=== PATIENT | male | born 1985 | race Caucasian/White ===

== ENCOUNTER 2023-08-03 18:17 | Emergency (ER) | payer MEDICAID ==
[~2023-08-03] VITALS: Ht 182.9 cm; Wt 72.7 kg
[2023-08-03] MEDS ORDERED: ringers solution, lacted 1,000 ML IV ONE (21:00)
[2023-08-03] MEDS ORDERED: morphine 4 MG/ML inj SYRINge IV ONE (21:40)
--- NOTE | 2023-08-03 21:49 | NUR ---
PER DR GARCIA REQUEST. PLACED NS SOAKED GAUZE ON PT PROLAPSED STOMA AND ICE PACKS.
[2023-08-03 21:50] LABS: BASOPHILS # (AUTO) 0.1 X10'3 (0-0.2); BASOPHILS % (AUTO) 0.6 % (0-1); EOSINOPHILS # (AUTO) 0.1 X10'3 (0-0.9); LYMPHOCYTES # (AUTO) 1.9 X10'3 (1.1-4.8); NEUTROPHILS # (AUTO) 10.8 X10'3 (1.8-7.7)
[2023-08-03 21:51] LABS: HEMATOCRIT 34.5 % (42.0-52.0); HEMOGLOBIN 10.7 g/dl (14.0-17.9); RED BLOOD COUNT 5.39 X10'6 (4.70-6.10)
[2023-08-03 21:52] LABS: EOSINOPHILS % (AUTO) 0.5 % (0-6); LYMPHOCYTES % (AUTO) 13.7 % (21-51); MEAN CORPUSCULAR HEMOGLOBIN 19.8 PG (27.0-31.0); MEAN CORPUSCULAR HGB CONC 30.9 g/dL (33.0-36.5); MEAN CORPUSCULAR VOLUME 64.1 FL (78-98); MEAN PLATELET VOLUME 7.4 FL (7.4-10.4); MONOCYTES # (AUTO) 1.1 X10'3 (0-0.9); MONOCYTES % (AUTO) 8.1 % (2-12); NEUTROPHILS % (AUTO) 77.1 % (42-75); PLATELET COUNT 624 X10'3 (140-440); RED CELL DISTRIBUTION WIDTH 19.3 % (11.5-14.5)
[2023-08-03 21:56] LABS: APTT 34 SECONDS (22-32); INR 1.1 INR; PROTHROMBIN TIME 11.5 SECONDS (9.0-12.0)
[2023-08-03 22:00] LABS: ANISOCYTOSIS 2+; MICROCYTOSIS 2+; PLATELET ESTIMATE INCREASED
[2023-08-03 22:05] LABS: POIKILOCYTOSIS 1+
[2023-08-03 22:06] LABS: HYPOCHROMASIA 1+
[2023-08-03 22:07] LABS: ELLIPTOCYTES 1+
[2023-08-03 22:08] LABS: SCHISTOCYTES 1+
--- NOTE | 2023-08-03 22:08 | NUR ---
PT PROLAPSE REDUCED IN SIZE A VERY SMALL AMOUNT. PLACED CANE SUGAR ON PROLAPSE AND PLACED NS SOAKED GAUZE WITH ICE PACKS BACK ON. DR GARCIA NOTIFIED.
[2023-08-03 22:18] LABS: ALANINE AMINOTRANSFERASE 13 U/L (12-78); ALBUMIN 2.1 G/DL (3.4-5.0); ALBUMIN/GLOBULIN RATIO 0.4 (1.1-1.5); ALKALINE PHOSPHATASE 111 IU/L (46-116); ANION GAP 13 (8-16); ASPARTATE AMINO TRANSFERASE 13 U/L (10-37); BILIRUBIN,TOTAL 0.3 MG/DL (0.1-1.0); BLOOD UREA NITROGEN 7 MG/DL (7-18); CALCIUM 9.2 MG/DL (8.5-10.1); CHLORIDE 97 MMOL/L (99-107); GLUCOSE 107 MG/DL (70-104); POTASSIUM 3.4 MMOL/L (3.5-5.1); SODIUM 133 MMOL/L (135-145); TOTAL CARBON DIOXIDE 23.5 MMOL/L (24-32); TOTAL PROTEIN 7.8 G/DL (6.4-8.2); eCRCL 144 ML/MIN; eGFR > 90 ML/MIN
[2023-08-03 22:19] LABS: PRO BRAIN NATRIURETIC PEPTIDE 208 PG/ML (0-125)
--- NOTE | 2023-08-03 22:59 | NUR ---
marah lemus attempt to reduce prolapse. attempt unsuccessful. placed ns soaked gauze over site per dr lemus request.
[2023-08-03 23:51] LABS: BILIRUBIN,URINE SMALL (Neg); CLARITY,URINE TURBID (Clear); COLOR,URINE YELLOW (Yellow); GLUCOSE, URINE NEGATIVE (Neg); KETONES,URINE 40 mg/dl (Neg); LEUKOCYTE ESTERASE ,URINE NEGATIVE (Neg); NITRITES, URINE POSITIVE (Neg); OCCULT BLOOD,URINE TRACE-INTACT (Neg); PROTEIN,URINE 30 mg/dl (Neg); UROBILINOGEN,URINE 0.2 E.U/dL (0.2-1.0)
[2023-08-03 23:59] LABS: UA COLLECTION TYPE SUPRAPUBIC CATH
[2023-08-04] LABS: MUCUS STRANDS MANY /LPF (Neg); SQUAMOUS EPITHELIAL CELL,UR MANY /LPF (FEW)
[2023-08-04 00:02] LABS: WBC,URINE 50-100 /HPF (0-4)
[2023-08-04 00:03] LABS: BACTERIA,URINE 3+ /HPF (Neg); RBC,URINE 0-2 /HPF (0-2)
[2023-08-04] MEDS ORDERED: piperacillin/tazo 4.5gm/100ml 100 ML IV ONE (01:57)
--- NOTE | 2023-08-04 03:39 | NUR ---
I have reviewed and agree with all assessments performed and documented by (JENNIFER RECINOS)
[2023-08-04] MEDS ORDERED: morphine 4 MG/ML inj SYRINge IV ONE ×2 (06:55→07:35)
--- NOTE | 2023-08-04 07:12 | NUR ---
pt requested to have ostomy bag put on. notified charge liz rn, charge agreed. cleaned around site with ns and applied new ostomy bag.
[2023-08-04 07:17] VITALS: TEMP 97.4
[2023-08-04] MEDS ORDERED: fentaNYL/PF 50MCG/1 ML 2ML syringe IV ONE (07:40)
--- NOTE | 2023-08-04 07:43 | NUR ---
DR HOLLIDAY AT BEDSIDE, REDUCED OSTOMY.
[2023-08-04] MEDS ORDERED: normal saline 1000ML IV soln IVB ONE (07:55)
--- NOTE | 2023-08-04 08:29 | NUR ---
dr peña removed ostomy bag and reinserted stoma on pt.
--- NOTE | 2023-08-04 08:47 | NUR ---
Blood [id number] [employer]ILIENC[employer]GER notified.
--- NOTE | 2023-08-04 13:30 | NUR ---
assumed care of pt from Higinio RODRIGUEZ, pt is sleeping, resp even and unlabored, skin p/w/d. Trying to transfer pt to [facility], they denied pt as they have no beds.
--- NOTE | 2023-08-04 15:00 | NUR ---
Dr Akers at bedside to reevualate pt
[2023-08-04 15:14] LABS: BASOPHILS % (AUTO) 0.3 % (0-1); EOSINOPHILS # (AUTO) 0.2 X10'3 (0-0.9); EOSINOPHILS % (AUTO) 1.7 % (0-6); HEMATOCRIT 30.3 % (42.0-52.0); HEMOGLOBIN 9.2 g/dl (14.0-17.9); LYMPHOCYTES # (AUTO) 1.2 X10'3 (1.1-4.8); LYMPHOCYTES % (AUTO) 10.3 % (21-51); MEAN CORPUSCULAR HEMOGLOBIN 19.5 PG (27.0-31.0); MEAN CORPUSCULAR HGB CONC 30.5 g/dL (33.0-36.5); MEAN CORPUSCULAR VOLUME 63.8 FL (78-98); MEAN PLATELET VOLUME 7.3 FL (7.4-10.4); MONOCYTES # (AUTO) 0.6 X10'3 (0-0.9); MONOCYTES % (AUTO) 5.3 % (2-12); NEUTROPHILS # (AUTO) 9.9 X10'3 (1.8-7.7); NEUTROPHILS % (AUTO) 82.4 % (42-75); PLATELET COUNT 543 X10'3 (140-440); RED BLOOD COUNT 4.75 X10'6 (4.70-6.10); RED CELL DISTRIBUTION WIDTH 18.7 % (11.5-14.5); WHITE BLOOD COUNT 12.1 X10'3 (4.5-11.0)
[2023-08-04 15:20] LABS: ALANINE AMINOTRANSFERASE 13 U/L (12-78); ALBUMIN 1.7 G/DL (3.4-5.0); ALBUMIN/GLOBULIN RATIO 0.3 (1.1-1.5); ALKALINE PHOSPHATASE 95 IU/L (46-116); ANION GAP 8 (8-16); ASPARTATE AMINO TRANSFERASE 20 U/L (10-37); BILIRUBIN,TOTAL 0.2 MG/DL (0.1-1.0); BLOOD UREA NITROGEN 7 MG/DL (7-18); BUN/CREATININE RATIO 11.1 (10.0-20.0); CALCIUM 8.5 MG/DL (8.5-10.1); CHLORIDE 100 MMOL/L (99-107); CREATININE 0.63 MG/DL (0.60-1.10); GLUCOSE 122 MG/DL (70-104); POTASSIUM 3.3 MMOL/L (3.5-5.1); SODIUM 134 MMOL/L (135-145); TOTAL CARBON DIOXIDE 26.4 MMOL/L (24-32); TOTAL PROTEIN 6.6 G/DL (6.4-8.2); eCRCL 160 ML/MIN; eGFR > 90 ML/MIN
[2023-08-04] MEDS ORDERED: CIPR-259 PO (15:50)
[2023-08-04] MEDS ORDERED: CYCL-1 PO (15:50)
--- NOTE | 2023-08-04 17:15 | NUR ---
pt waiting for ride home, father will be here with wheelchair and clothes. 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 Emptied suprapubic marion dark yellow with sediment, 600ml. Pt tolerated dressing change well. Pt applied own colostomy bag
[2023-08-04 18:50] VITALS: BP 107/68; PULSE 86; RESP 18; O2SAT 96
== END 2023-08-04 18:45 ==
LOC: ER 18:17
DX: T81.9XXA Unspecified complication of procedure, initial encounter (principal); N39.0 Urinary tract infection, site not specified; K31.89 Other diseases of stomach and duodenum
CPT/HCPCS: 36415; 71045; 80053; 81001; 83605; 83880; 84145; 84484; 85008; 85025; 85610; 85730; 87040; 96361; 96365; 96366; 96375; 96376; 99285; J2270; J2543; J7030; J7120; A4371; A4398; A4421; A6253; A6446; A6449